=== PATIENT | male | born 1985 | race Hispanic/Latino ===

== ENCOUNTER 2020-10-21 17:39 | Emergency (ER) | payer OTHER ==
[~2020-10-21] VITALS: Ht 180.3 cm; Wt 104.5 kg
[2020-10-21] MEDS ORDERED: PROPARACAINE 0.5% OPHTH SOL 15ML OD ONE (18:45)
[2020-10-21] MEDS ORDERED: FLUORESCEIN OPHTH 1 MG STRIP OD ONE (18:45)
[2020-10-21] MEDS ORDERED: OFLO3OPSO OD (19:16)
[2020-10-21 19:59] VITALS: BP 129/78
== END 2020-10-21 20:01 | disposition home or self-care (01) ==
LOC: M ED 17:39
DX: H10.9 Unspecified conjunctivitis (principal); S05.01XA Injury of conjunctiva and corneal abrasion without foreign body, right eye, initial encounter; X58.XXXA Exposure to other specified factors, initial encounter; Y92.89 Other specified places as the place of occurrence of the external cause